=== PATIENT | male | born 1975 | race Two or more races ===

== ENCOUNTER 2017-06-22 20:33 | Inpatient (IN) | payer MEDICAID ==
[~2017-06-22] VITALS: Ht 167.6 cm; Wt 109.0 kg
[2017-06-22 21:42] LABS: Basophils # (auto) 0.1 uL; Basophils % (auto) 0.5 % (0.0-2.0); Eosinophils # (auto) 0.2 uL; Eosinophils % (auto) 1.6 % (0.0-7.0); Hematocrit 46.7 % (41.0-53.0); Lymphocytes # (auto) 2.3 uL; Lymphocytes % (auto) 22.3 % (10.0-50.0); Mean Corpuscular Hemoglobin 28.8 pg (28.0-32.0); Mean Corpuscular Hgb Conc. 34.3 g/dL (32.0-36.0); Mean Platelet Volume 10.4 fL (6.9-10.8); Monocytes # (auto) 0.7 uL; Monocytes % (auto) 6.7 % (0.0-12.0); Neutrophils % (auto) 68.9 % (37.0-80.0); Nucleated Red Blood Cells % 0.2 %; Platelet Count (auto) 166 10^3/uL (140-450); Red Cell Distribution Width 13.4 % (11.8-14.3); White Blood Cell 10.1 10^3/uL (4.4-10.8)
[2017-06-22 21:51] LABS: BUN/Creatinine Ratio 10.2; Calcium 8.7 mg/dL (8.5-10.1); Potassium 3.9 mmol/L (3.5-5.1)
[2017-06-23] MEDS ORDERED: VANCOMYCIN 1GM/250ML 250 ML IV ONE (01:30)
[2017-06-23] MEDS ORDERED: cefTRIAXone 1GM/50ML D5W 50 ML IV ONE (01:30)
[2017-06-23] MEDS ORDERED: cefTRIAXone SOD 1,000 MG VL ONE (01:52)
[2017-06-23] MEDS ORDERED: TEMAZEPAM 15 MG CAP PO PRN (04:15)
[2017-06-23] MEDS ORDERED: ACETAMINOPHEN 325 MG TAB PO PRN (04:15)
[2017-06-23] MEDS ORDERED: DOCUSATE SOD 100 MG CAP PO PRN (04:15)
[2017-06-23] MEDS ORDERED: ONDANSETRON HCL 4 MG/2 ML VIAL IV PRN (04:15)
[2017-06-23] MEDS ORDERED: DEXTROSE (50%) 50ML SYRG IV PRN (04:15)
[2017-06-23] MEDS ORDERED: HYDROcodone-ACET 5/325MG TAB PO PRN (04:15)
[2017-06-23] MEDS: InsuLIN REG 1unit/0.01ml Soln (100units/ml) SC SCH ×3 (06:20→18:30)
[2017-06-23] MEDS: ACCU-CHEK COMFORT CURVE STRIP VI SCH ×3 (06:20→18:29)
[2017-06-23] MEDS: ENOXAPARIN SOD 40 MG/0.4 ML SYRINGE SC SCH (10:43)
[2017-06-23] MEDS: FAMOTIDINE 20 MG TAB PO SCH ×2 (10:43→21:38)
[2017-06-23] MEDS: VANCOMYCIN 1GM/250ML 250 ML IV SCH ×2 (10:43→18:29)
[2017-06-23] MEDS ORDERED: VANCOMYCIN PER PHARMACY 0 MG IV SCH (13:00)
[2017-06-23 17:00] VITALS: BP 116/73
[2017-06-23 21:18] VITALS: BP 126/86
[2017-06-23 21:21] VITALS: BP 121/82
[2017-06-23] MEDS ORDERED: cefTRIAXone 1GM/50ML D5W 50 ML IV SCH (22:00)
[2017-06-24] MEDS: InsuLIN REG 1unit/0.01ml Soln (100units/ml) SC SCH ×3 (00:15→11:59)
[2017-06-24] MEDS: ACCU-CHEK COMFORT CURVE STRIP VI SCH ×3 (00:15→11:59)
[2017-06-24] MEDS: VANCOMYCIN 1GM/250ML 250 ML IV SCH ×2 (02:20→10:00)
[2017-06-24 04:55] VITALS: BP 134/98
[2017-06-24 04:57] VITALS: BP 118/72
[2017-06-24 05:21] LABS: Basophils # (auto) 0 uL; Basophils % (auto) 0.4 % (0.0-2.0); Eosinophils # (auto) 0.3 uL; Eosinophils % (auto) 2.9 % (0.0-7.0); Hematocrit 44.4 % (41.0-53.0); Hemoglobin 15.5 g/dL (13.5-17.5); Lymphocytes # (auto) 2.3 uL; Lymphocytes % (auto) 24.8 % (10.0-50.0); Mean Corpuscular Hgb Conc. 34.9 g/dL (32.0-36.0); Mean Platelet Volume 9.3 fL (6.9-10.8); Monocytes # (auto) 0.9 uL; Monocytes % (auto) 9.6 % (0.0-12.0); Neutrophils # (auto) 5.8 uL; Neutrophils % (auto) 62.3 % (37.0-80.0); Nucleated Red Blood Cells % 0.1 %; Platelet Count (auto) 149 10^3/uL (140-450); Red Cell Distribution Width 13.2 % (11.8-14.3); White Blood Cell 9.3 10^3/uL (4.4-10.8)
[2017-06-24 05:47] LABS: Albumin 3.2 g/dL (3.4-5.0); Bilirubin, Total 1.6 mg/dL (0.2-1.0); Calcium 8.4 mg/dL (8.5-10.1); Potassium 3.4 mmol/L (3.5-5.1); Total Protein 7.5 g/dL (6.4-8.2)
[2017-06-24 09:00] VITALS: BP 121/75
[2017-06-24] MEDS: FAMOTIDINE 20 MG TAB PO SCH (09:17)
[2017-06-24] MEDS: ENOXAPARIN SOD 40 MG/0.4 ML SYRINGE SC SCH (09:22)
[2017-06-24] MEDS ORDERED: CEFTRIAXONE SODIUM 2 GM in D5W 5% 50 ML IV SCH (10:00)
[2017-06-24 13:23] VITALS: BP 149/95
== END 2017-06-24 14:08 | disposition home or self-care (01) | DRG 383 ==
LOC: ER 20:43 → OVERFLOW 20:44 → EAST 06-23 07:53 → WEST WING 06-23 16:01
PROVIDERS: ADMIT Nurse Practitioner; ATTEND Internal Medicine Pulmonary Disease
DX: L02.211 Cutaneous abscess of abdominal wall (principal); I10 Essential (primary) hypertension; E11.9 Type 2 diabetes mellitus without complications; B95.8 Unspecified staphylococcus as the cause of diseases classified elsewhere; E66.9 Obesity, unspecified; L03.311 Cellulitis of abdominal wall; Z68.38 Body mass index [BMI] 38.0-38.9, adult
CPT/HCPCS: 36415; 80048; 80053; 80202; 82962; 83036; 83605; 85025; 87040; 87077; 87186; 87205; 96365; 96367; J0696; J1815; J7060